=== PATIENT | female | born 1990 | race American Indian/Alaskan Native ===

== ENCOUNTER 2017-05-12 18:13 | Inpatient (IN) | payer MEDICAID ==
[2017-05-12] MEDS ORDERED: POLYCILLIN/NS 2 GM/100 ML 2 GM/100 ML BAG IV ONE (18:19)
[2017-05-12] MEDS ORDERED: SUBLIMAZE IV PRN (18:19)
[2017-05-12] MEDS ORDERED: BRETHINE IVP PRN (18:19)
[2017-05-12] MEDS ORDERED: MINERAL OIL PO PRN (18:19)
[2017-05-12] MEDS ORDERED: BRETHINE SUB-Q PRN (18:19)
[2017-05-12] MEDS ORDERED: XYLOCAINE 2% INFILTRATI ONE (18:19)
[2017-05-12] MEDS ORDERED: ePHEDrine SULFATE IV PRN ×2 (18:19→20:52)
--- NOTE | 2017-05-12 18:31 | History and Physical Report ---
History of Present Illness Date of examination: 05/12/17 Date of admission: 05/12/17 18:15 Chief complaint: My water broke History of present illness: 27 y/o presents to labor and delivery with rupture of membranes @ 39.2 weeks. care at [facility] since 9 weeks. GBS+. Past History Past Medical History: hypertension, diabetes Past Surgical History: D&C Family/Genetic History: none Social history: no significant social history - Obstetrical History Expected Date of Delivery: 05/17/17 Actual Gestation: 39 Week(s) 2 Day(s) : 3 Para: 1 Hx # Term Pregnancies: 1 Induced : 1 Number of Living Children: 1 Medications and Allergies Allergies Allergy/AdvReac Type Severity Reaction Status Date / Time No Known Allergies Allergy Verified 05/12/15 12:36 Home Medications Medication Instructions Recorded Confirmed Last Taken Type No Known Home Medications [No 03/28/16 03/28/16 Unknown History Reported Home Medications] Active Meds: Active Medications Ephedrine Sulfate (Ephedrine Sulfate) 10 mg IV Q2M PRN PRN Reason: Hypotension Stop: 05/12/17 18:24 Fentanyl (Sublimaze) 100 mcg IV Q2H PRN PRN Reason: Labor Pain Ampicillin Sodium (Polycillin/Ns 1 Gm/50 Ml) 1 gm in 50 mls @ 100 mls/hr IV Q4HR SARAH PRN Reason: Protocol Ampicillin Sodium (Polycillin/Ns 2 Gm/100 Ml) 2 gm in 100 mls @ 100 mls/hr IV ONCE ONE PRN Reason: Protocol Stop: 05/12/17 19:18 Lactated Ringer's (Lactated Ringers) 1,000 mls @ 125 mls/hr IV DIRECT SARAH Oxytocin/Sodium Chloride (Pitocin/Ns 20 Unit/1000ml Drip) 20 units in 1,000 mls @ 125 mls/hr IV DIRECT SARAH Oxytocin/Sodium Chloride (Pitocin/Ns 30 Unit/500ml) 30 units in 500 mls @ 4 mls /hr IV TITR SARAH PRN Reason: Protocol Lidocaine (Xylocaine 2%) 20 ml INFILTRATI ONCE ONE Stop: 05/12/17 18:20 Mineral Oil (Mineral Oil) 30 ml PO QHS PRN PRN Reason: Constipation Terbutaline Sulfate (Brethine) 0.25 mg SUB-Q ONCE PRN PRN Reason: Hyperstimulation/Hypertonicity Stop: 05/12/17 18:20 Terbutaline Sulfate (Brethine) 0.25 mg IVP ONCE PRN PRN Reason: Hyperstimulation/Hypertonicity Stop: 05/12/17 18:20 Review of Systems All systems: negative - Vital Signs Vital signs: Vital Signs Temp Pulse Resp BP 98.8 F 80 18 128/82 05/12/17 18:16 05/12/17 18:16 05/12/17 18:16 05/12/17 18:16 Temp Pulse Resp BP Pulse Ox 98.8 F 80 18 128/82 05/12/17 18:16 05/12/17 18:16 05/12/17 18:16 05/12/17 18:16 - Physical Exam Breasts: Positive: deferred Cardiovascular: Regular rate Lungs: Positive: Clear to auscultation Abdomen: Positive: soft Genitourinary (Female): Positive: normal external genitalia Vulva: both: normal Vagina: Positive: discharge Uterus: Positive: enlarged Adnexa: both: normal Anus/Rectum: Positive: normal perianal skin Deep Tendon Reflex Grade: Normal +2 - Obstetrical FHR: category 1 Uterine Contraction Monitor Mode: External Cervical Dilatation: 4 (IUPC placed) Cervical Effacement Percentage: 80 station: -1 Uterine Contraction Frequency (min): 2-3 Uterine Contraction Pattern: Regular Uterine Contraction Intensity: Moderate Results All other labs normal. Assessment and Plan A: 39.2 weeks SROM, meconium P: Expect
[2017-05-12 18:35] LABS: Hematocrit 39.3 % (30.3-42.9); Hemoglobin 12.8 gm/dl (10.1-14.3); Mean Corpuscular HGB Conc 33 % (30-34); Mean Corpuscular Hemoglobin 29 pg (28-32); Mean Corpuscular Volume 89 fl (79-97); Platelet Count 216 K/mm3 (140-440); Red Blood Count 4.43 M/mm3 (3.65-5.03); Red Cell Distribution Width 13.8 % (13.2-15.2); White Blood Count 12.8 K/mm3 (4.5-11.0)
[2017-05-12] MEDS: LACTATED RINGERS 1,000 ML IV SCH ×2 (18:41→20:30)
[2017-05-12] MEDS ORDERED: PITOCin/NS 20 UNIT/1000ML DRIP 20 UNITS/1,000 ML BAG IV SCH (19:00)
[2017-05-12] MEDS ORDERED: PITOCin/NS 30 UNIT/500ML 30 UNITS/500 ML BAG IV SCH (19:00)
[2017-05-12] MEDS ORDERED: ePHEDrine SULFATE ONE (20:13)
--- NOTE | 2017-05-12 20:51 | Anesthesia Consultation ---
Anesthesia Consult and Med Hx Date of service: 05/12/17 - Airway Anesthetic Teeth Evaluation: Good ROM Head & Neck: Adequate Mental/Hyoid Distance: Adequate Intubation Access Assessment: Probably Good - Pulmonary Exam CTA: Yes - Cardiac Exam Cardiac Exam: RRR - Pre-Operative Health Status ASA Pre-Surgery Classification: ASA2, Emergency Proposed Anesthetic Plan: Epidural, Spinal - Pulmonary Hx Asthma: No COPD: No Hx Pneumonia: No - Cardiovascular System Hx Hypertension: No - Central Nervous System Hx Seizures: No Hx Psychiatric Problems: No - Endocrine Hx Renal Disease: No Hx End Stage Renal Disease: No Hx Hypothyroidism: No Hx Hyperthyroidism: No - Hematic Hx Anemia: No Hx Sickle Cell Disease: No - Other Systems Hx Alcohol Use: No
[2017-05-12] MEDS ORDERED: NARCAN 2 MG/2 ML IV PRN (20:52)
[2017-05-12] MEDS ORDERED: fentaNYL-BUPIV 2 MCG/ML-0.125% 200 MCG/100 ML BAG EPIDURAL SCH (21:00)
[2017-05-12] MEDS ORDERED: POLYCILLIN/NS 1 GM/50 ML 1 GM/50 ML BAG IV SCH (22:21)
[2017-05-12] MEDS ORDERED: LANSINOH TP PRN (22:47)
[2017-05-12] MEDS ORDERED: BENADRYL PO PRN (22:47)
[2017-05-12] MEDS ORDERED: PHENERGAN PO PRN (22:47)
[2017-05-12] MEDS ORDERED: TYLENOL PO PRN (22:47)
[2017-05-12] MEDS ORDERED: NORCO 5/325 PO PRN (22:47)
--- NOTE | 2017-05-12 22:54 | Procedure Note ---
OB Delivery Note - Delivery Date of Delivery: 05/12/17 Surgeon: BECKY GOSS Estimated blood loss: 100cc - Vaginal Delivery presentation: vertex Delivery position: OA Intrapartum events: meconium, other(please specify) (temp 100.2 at delivery) Delivery induction: none Delivery augmentation: rupture of membranes, pitocin Delivery monitor: external FHT, internal uterine Route of delivery: Delivery placenta: spontaneous Episiotomy: none Delivery laceration: none Anesthesia: epidural Delivery comments: of a viable female 5 # 15oz on 05/12/2017 @ 2239 over intact perineum. Cord clamped and cut and baby passed to NICU team due to meconium. PLacenta delivered 3VCI. 8/9. FF @ U mother and baby doing well. Temp 100.2 at delivery. - Infant A at 1 minute: 8 at 5 minutes: 9 Infant Gender: Female (5-15)
[2017-05-12] MEDS ORDERED: SODIUM CHLORIDE FLUSH SYRINGE 10 ML IV NR (23:00)
[2017-05-12] MEDS: MOTRIN PO SCH (23:11)
[2017-05-13] MEDS: MOTRIN PO SCH ×4 (05:51→23:56)
--- NOTE | 2017-05-13 10:50 | Progress Note ---
Subjective Date of service: 05/13/17 Interval history: 1st day after normal vaginal delivery Patient is in the bed, comfortable. Pain is well controlled with pain meds. Ambulated well. No residual neurological deficit. No anesthesia complications Objective - Constitutional Vitals: Vital Signs - 12hr 05/12/17 05/12/17 05/12/17 22:58 23:13 23:37 Temperature Pulse Rate 99 H 98 H 85 Respiratory Rate Blood Pressure 125/72 124/72 117/64 O2 Sat by Pulse Oximetry 05/12/17 05/12/17 05/13/17 23:45 23:46 00:05 Temperature 100.2 F H 99.2 F Pulse Rate 78 86 71 Respiratory 16 18 Rate Blood Pressure 124/59 129/69 O2 Sat by Pulse 98 Oximetry 05/13/17 05/13/17 04:20 08:10 Temperature 98.2 F 98.6 F Pulse Rate 72 69 Respiratory 18 20 Rate Blood Pressure 103/57 104/70 O2 Sat by Pulse Oximetry - Labs CBC & Chem 7: 05/12/17 18:15 Labs: Abnormal lab results 05/12/17 Range/Units 18:15 WBC 12.8 H (4.5-11.0) K/mm3
[2017-05-13 10:57] LABS: Hematocrit 33.2 % (30.3-42.9); Hemoglobin 11.2 gm/dl (10.1-14.3)
--- NOTE | 2017-05-13 18:18 | Progress Note ---
Assessment and Plan A: PPD #1 -stable P: Discharge home in am Subjective - Subjective Date of service: 05/13/17 Principal diagnosis: Interval history: 27 y/o presents to labor and delivery with rupture of membranes @ 39.2 weeks. care at [facility] since 9 weeks. GBS+. Patient reports: appetite normal : doing well Objective - Vital Signs Latest vital signs: Vital Signs Temp Pulse Resp BP Pulse Ox 05/13/17 16:55 98.3 F 59 L 20 111/75 05/13/17 08:10 98.6 F 69 20 104/70 05/13/17 04:20 98.2 F 72 18 103/57 05/13/17 00:05 99.2 F 71 18 129/69 05/12/17 23:46 86 98 05/12/17 23:45 100.2 F H 78 16 124/59 05/12/17 23:37 85 117/64 05/12/17 23:13 98 H 124/72 05/12/17 22:58 99 H 125/72 05/12/17 22:48 100.2 F H 103 H 20 139/68 05/12/17 22:43 103 H 139/68 05/12/17 22:24 81 99 05/12/17 22:19 82 98 05/12/17 22:14 78 97 05/12/17 22:12 82 101/56 05/12/17 22:09 86 98 05/12/17 22:04 77 98 05/12/17 21:59 83 97 05/12/17 21:54 82 98 05/12/17 21:50 99.7 F H 82 20 132/78 05/12/17 21:37 94 H 98 05/12/17 21:36 90 138/78 05/12/17 21:32 83 97 05/12/17 21:27 92 H 97 05/12/17 21:22 71 120/76 98 05/12/17 21:17 82 98 05/12/17 21:12 82 98 05/12/17 21:07 78 127/75 98 05/12/17 21:02 78 98 05/12/17 20:57 83 97 05/12/17 20:55 99.7 F H 76 20 113/64 05/12/17 20:52 77 97 05/12/17 20:50 87 113/64 05/12/17 20:48 85 117/70 05/12/17 20:47 85 97 05/12/17 20:46 73 116/71 05/12/17 20:44 72 120/61 05/12/17 20:42 83 98 05/12/17 20:40 86 118/76 05/12/17 20:38 100 H 132/79 05/12/17 20:37 124 H 98 05/12/17 20:36 95 H 125/76 05/12/17 20:32 96 H 96 05/12/17 19:31 89 98 05/12/17 19:22 99.4 F 74 18 127/82 05/12/17 19:18 18 Intake and Output 05/13/17 05/13/17 05/13/17 06:59 14:59 22:59 Intake Total 615 360 120 Output Total 900 1200 1 Balance -285 -840 119 Intake: IV 375 PITOCin/NS 20 UNIT/1000ML 375 DRIP 20 units In 1,000 ml @ 125 mls/hr IV DIRECT SARAH Rx#:[id number] Oral 240 360 120 Output: Urine 900 1200 1 Void 900 1200 1 Other: Total, Intake Amount 240 120 120 Total, Output Amount 400 600 1 # Voids Void 1 - Exam Breasts: Present: deferred Cardiovascular: Present: Regular rate Lungs: Present: Clear to auscultation Abdomen: Present: soft Vulva: both: normal Uterus: Present: fundal height below umbilicus Extremities: Present: normal Deep Tendon Reflex Grade: Normal +2 - Labs Labs: Abnormal lab results 05/12/17 Range/Units 18:15 WBC 12.8 H (4.5-11.0) K/mm3
--- NOTE | 2017-05-13 18:20 | Discharge Summary ---
Providers - Providers Date of Admission: 05/12/17 18:15 Date of discharge: 05/14/17 Attending physician: SVITLANA BUSTILLO MD Primary care physician: SVITLANA BUSTILLO MD Hospitalization Reason for admission: active labor Delivery: Episiotomy: none Laceration: none Other procedures: none Discharge diagnosis: IUP at term delivered [place] baby: female Condition at discharge: Good Disposition: DC-01 TO HOME OR SELFCARE Plan - Provider Discharge Summary Activity: routine, no sex for 6 weeks, no strenuous exercise Diet: routine Instructions: routine Additional instructions: [] Smoking cessation referral if applicable(refer to patient education folder for contact #) [] Refer to [facility] Book[facility] Call your doctor immediately for: * Fever > 100.5 * Heavy vaginal bleeding ( >1 pad per hour) * Severe persistent headache * Shortness of breath * Reddened, hot, painful area to leg or breast * Drainage or odor from incision. * Keep incision clean and dry at all times and follow doctor's instructions regarding bathing/showering - Follow up plan Follow up: [facility] [Provider Group] - 6 Weeks
[2017-05-14] MEDS: MOTRIN PO SCH (06:10)
[2017-05-14 09:12] VITALS: BP 114/75
== END 2017-05-14 11:25 | disposition home or self-care (01) | DRG 774 ==
LOC: TRG 18:13 → LD 18:15 → OB 05-13 00:26
PROVIDERS: ADMIT Obstetrics & Gynecology; ATTEND Obstetrics & Gynecology
PROC: 10E0XZZ Delivery of Products of Conception, External Approach (ICD-10-PCS; principal; 2017-05-12)
PROC: 3E0R3BZ Introduction of Anesthetic Agent into Spinal Canal, Percutaneous Approach (ICD-10-PCS; 2017-05-12)
PROC: 00HU33Z Insertion of Infusion Device into Spinal Canal, Percutaneous Approach (ICD-10-PCS; 2017-05-12)
DX: O77.0 Labor and delivery complicated by meconium in amniotic fluid (principal); O75.2 Pyrexia during labor, not elsewhere classified; O99.824 Streptococcus B carrier state complicating childbirth; Z3A.39 39 weeks gestation of pregnancy; Z37.0 Single live birth; O24.92 Unspecified diabetes mellitus in childbirth; O16.4 Unspecified maternal hypertension, complicating childbirth; O42.02 Full-term premature rupture of membranes, onset of labor within 24 hours of rupture
CPT/HCPCS: 36415; 85014; 85018; 85027; 86850; 86900; 86901; J0290; J2590; J3010; J7120